=== PATIENT | male | born 1995 | race Two or more races ===

== ENCOUNTER 2022-02-16 20:17 | Emergency (ER) | payer OTHER ==
--- NOTE | 2022-02-16 20:40 | ED Physician Documentation ---
PD HPI LOWER EXT INJURY - Stated complaint Stated Complaint: RT LEG INJ - Chief complaint Chief Complaint: Trauma Ext - History obtained from History obtained from: Patient - History of Present Illness PD HPI LOW EXT INJURY LOCATION: Right, Upper leg Timing - onset: Enter time (19:45), Today Timing - details: Abrupt onset Pain level max: 8 Pain level now: 2 Improved by: Rest Worsened by: Moving, Palpating Associated symptoms: No: Weakness, Numbness, Tingling, Swelling, Discolored Recently seen: Not recently seen - Additional information Additional information: c/o sudden onset right posterior thigh pain, sudden onset at approximately 7:45 PM while playing softball. No specific injury, onset during exertion and accompanied by popping sensation. Pain is worse with movement and weight-bearing Review of Systems Musculoskeletal: reports: Extremity pain, Pain with weight bearing. denies: Neck pain, Back pain, Joint pain, Extremity swelling, Joint swelling Neurologic: denies: Focal weakness, Numbness PD PAST MEDICAL HISTORY - Past Medical History Past Medical History: No - Present Medications Home Medications: Ambulatory Orders Medication Instructions Recorded Confirmed Cyclobenzaprine [Flexeril] 10 mg PO TID PRN #20 tablet 02/16/22 HYDROcod/ACETAM 5/325 [[place] 5/325] 1 - 2 tablet PO Q6H PRN #14 tablet 02/16/22 - Allergies Allergies/Adverse Reactions: Allergies Allergy/AdvReac Type Severity Reaction Status Date / Time No Known Drug Allergies Allergy Verified 02/16/22 20:37 - Living Situation Living Arrangement: reports: At home PD ED PE NORMAL - Vitals Vital signs reviewed: Yes - General General: Alert and oriented X 3, No acute distress, Well developed/nourished ( ) - Extremities Extremities: No deformity, No edema, Other (FROM right knee, limited right hip flexion due to exacerbation of pain) - Neuro Neuro: No sensory deficit Results - Vitals Vitals: Oxygen O2 Source Room air PD MEDICAL DECISION MAKING - ED course Complexity details: considered differential, d/w patient ED course: c/o sudden onset right distal posterior thigh pain while playing softball. No element of H+P to suggest right calf injury such as achilles tendon rupture; symptoms are limited to distal posterior thigh. Suspect muscle and/or tendon strain, emergent testing unlikely to result in diagnosis or change in conservative management. given crutches and instructed to follow up with primary care provider for reevaluation. Departure - Departure Disposition: 01 Home, Self Care Clinical Impression: Sprain of thigh Condition: Good Instructions: ED Strain Muscle Ext Follow-Up: YULIET AMANDA MD [Primary Care Provider] - (Call your primary care provider to arrange for next available appointment; ideally, reevaluation within the next 3-5 days) Prescriptions: Cyclobenzaprine [Flexeril] 10 mg PO TID PRN #20 tablet PRN Reason: Spasms HYDROcod/ACETAM 5/325 [[place] 5/325] 1 - 2 tablet PO Q6H PRN #14 tablet PRN Reason: Pain Comments: Prescriptions for hydrocodone/acetaminophen (vicodin, narcotic pain medication) and cyclobenzaprine (muscle relaxer) have been electronically submitted to the [facility] pharmacy in [place]. Minimize weight-bearing using the crutches. The symptoms you describe suggest a muscle sprain but, as we discussed, a more advanced injury such as a ligament rupture, though unlikely, is possible. If your symptoms do not improve over the next several days, your primary care provider might order tests to look into the cause, but emergency tests would not help with diagnosis of injuries to muscle/ligament/tendon. I am prescribing a short course of narcotic pain medication for you. These are potentially dangerous and addictive medications that should be used carefully. These medications may constipate you. Take an ohvj-olx-hzsfxxz stool softener (docusate) twice daily with plenty of water while taking these medications. If you go 24 hours without a bowel movement, take [id number] miralax, per package instructions. Do not drink or drive while taking these medications. If you received narcotic or sedating medications while in the emergency department, do not drive for 24 hours. Store this medication in a safe, secure place and out of reach of children. It is a violation of federal law to give or sell this medication to another person or to use in a manner other than prescribed. The ED will not refill narcotic prescriptions, including prescriptions lost or stolen. To dispose of unwanted medications: 1. [facility] [address] in [place] has a medication drop box. They accept prescription medications (in pill form) Monday through Monday 9:00 a.m. to 5:00 p.m. 2. The [facility] accepts prescription medications (in pill form only) for disposal year round. Call for more information. 3. Contact the [facility] for the next [facility] sponsored prescription drug collection event. , [phone], or [phone]; Forms: Activity restrictions Discharge Date/Time: 02/16/22 21:48
[2022-02-16] MEDS ORDERED: CYCLOBENZAPRINE 10 MG TABLET PO STA (20:59)
[2022-02-16] MEDS ORDERED: HYDROcod/ACET 5/325 Prepack 4 PO STA (20:59)
[2022-02-16] MEDS ORDERED: HYDROcod/ACETAM 5/325 MG TABLET PO STA (20:59)
[2022-02-16] MEDS ORDERED: CYCLOBENZAPRINE 10 MG Prepack 2 PO PRN (21:00)
[2022-02-16 21:16] VITALS: BP 144/88
== END 2022-02-16 21:48 | disposition home or self-care (01) ==
LOC: ED 20:17
DX: S73.101A Unspecified sprain of right hip, initial encounter (principal); X58.XXXA Exposure to other specified factors, initial encounter; Y93.64 Activity, baseball
CPT/HCPCS: 99282; 99283; A9270